=== PATIENT | male | born 1985 | race Hispanic/Latino ===

== ENCOUNTER 2019-12-26 23:03 | Emergency (ER) | payer SELFPAY ==
--- NOTE | 2019-12-26 23:19 | EDPHYS ---
Physician Documentation [facility] Name: Alexx Martin Age: 34 yrs Sex: Male : 1985 Arrival Date: 12/26/2019 Time: 23:07 Bed 17 Private MD: ED Physician rEik Duque HPI: 12/27 02:38 This 34 yrs old Male presents to ER via Ambulatory with complaints of tw4 Abcess/Tooth. 02:38 The patient presents with pain. The problem is located in the right submandibular area. tw4 Onset: The symptoms/episode began/occurred today. Duration: The symptoms are continuous. Modifying factors: The symptoms are alleviated by nothing, the symptoms are aggravated by nothing. Severity of symptoms: At their worst the symptoms were mild, in the emergency department the symptoms are unchanged. The patient has not experienced similar symptoms in the past. Historical: - Allergies: 12/26 23:27 No Known Allergies; wh - Home Meds: 23:27 None [Active]; wh - PMHx: 23:27 None; - PSHx: 23:27 None; wh - Immunization history:: Adult Immunizations up to date. - Coronavirus screen:: The patient has NOT traveled to [place] in the past 14 days. - Social history:: Smoking status: Patient/guardian denies using. - Ebola Screening: : Patient negative for fever greater than or equal to 101.5 degrees Fahrenheit, and additional compatible Ebola Virus Disease symptoms Patient denies exposure to infectious person. ROS: 12/27 02:38 Constitutional: Negative for fever, chills, and weight loss, Eyes: Negative for injury, tw4 pain, redness, and discharge, Cardiovascular: Negative for chest pain, palpitations, and edema, Respiratory: Negative for shortness of breath, cough, wheezing, and pleuritic chest pain, Abdomen/GI: Negative for abdominal pain, nausea, vomiting, diarrhea, and constipation, Back: Negative for injury and pain. ENT: Positive for dental pain, Negative for drainage from ear(s), ear pain, foreign body sensation, Gum pain hearing loss, nasal discharge, rhinorrhea, sinus congestion. Exam: 02:38 Head/face: Noted is swelling, that is moderate, of the right jaw. tw4 02:38 ENT: Dental exam: dental caries, that is moderate, specifically in the upper right third molar (#1), upper right second molar (#2), lower right first molar (#30) and lower right third molar (#32), gum swelling, that is moderate. 02:48 Constitutional: This is a well developed, well nourished patient who is awake, alert, tw4 and in no acute distress. Eyes: Pupils equal round and reactive to light, extra-ocular motions intact. Lids and lashes normal. Conjunctiva and sclera are non-icteric and not injected. Cornea within normal limits. Periorbital areas with no swelling, redness, or edema. Chest/axilla: Normal chest wall appearance and motion. Nontender with no deformity. No lesions are appreciated. Cardiovascular: Regular rate and rhythm with a normal S1 and S2. No gallops, murmurs, or rubs. Normal PMI, no JVD. No pulse deficits. Respiratory: Lungs have equal breath sounds bilaterally, clear to auscultation and percussion. No rales, rhonchi or wheezes noted. No increased work of breathing, no retractions or nasal flaring. Abdomen/GI: Soft, non-tender, with normal bowel sounds. No distension or tympany. No guarding or rebound. No evidence of tenderness throughout. Back: No spinal tenderness. No costovertebral tenderness. Full range of motion. Vital Signs: 12/26 23:30 BP 114 / 69; Pulse 88; Resp 18; Temp 98; Pulse Ox 99% ; Weight 65.77 kg; Height 5 ft. 4 wh in. (162.56 cm); Pain 6/10; 23:30 Body Mass Index 24.89 (65.77 kg, 162.56 cm) wh MDM: 23:16 Patient medically screened. tw4 12/27 02:48 Differential diagnosis: dental caries, dental abscess, aphthous ulcers. Data reviewed: tw4 vital signs, nurses notes. Data interpreted: Pulse oximetry: Interpretation: normal. Counseling: I had a detailed discussion with the patient and/or guardian regarding: the historical points, exam findings, and any diagnostic results supporting the discharge/admit diagnosis. Special discussion: I discussed with the patient/guardian in detail that at this point there is no indication for admission to the hospital. It is understood, however, that if the symptoms persist or worsen the patient needs to return immediately for re-evaluation. Administered Medications: 12/26 23:30 Drug: TORadol 60 mg Route: IM; Site: right gluteus; rr5 12/27 00:18 Follow up: Response: No adverse reaction 12/26 23:32 Drug: Cleocin 600 mg Route: IM; Site: left gluteus; rr5 12/27 00:18 Follow up: Response: No adverse reaction Disposition: 12/26/19 23:19 Discharged to Home. Impression: Dental caries, unspecified. - Condition is Stable. - Discharge Instructions: Dental Caries, Adult, Dental Pain. - Prescriptions for Cleocin 300 mg Oral Capsule - take 1 capsule by ORAL route every 6 hours for 10 days; 40 capsule. Ibuprofen 800 mg Oral Tablet - take 1 tablet by ORAL route every 8 hours As needed take with food; 30 tablet. Tylenol- Codeine #3 300-30 mg Oral Tablet - take 2 tablet by ORAL route every 6 hours As needed; 6 tablet. - Medication Reconciliation Form, Thank You Letter, Antibiotic Education, Prescription Opioid Use form. - Follow up: Private Physician; When: Upon discharge from the Emergency Department; Reason: If symptoms return, Recheck today's complaints, Continuance of care. - Problem is new. - Symptoms have improved. Signatures: Pauline Mosqueda wh Erik Duque MD MD tw4 Momo Montes RN RN rr5 Corrections: (The following items were deleted from the chart) 00:18 12/26 23:19 12/26/2019 23:19 Discharged to Home. Impression: Dental caries, wh unspecified. Condition is Stable. Forms are Medication Reconciliation Form, Thank You Letter, Antibiotic Education, Prescription Opioid Use. Follow up: Private Physician; When: Upon discharge from the Emergency Department; Reason: If symptoms return, Recheck today's complaints, Continuance of care. Problem is new. Symptoms have improved. tw4 12/27 02:48 02:38 Constitutional: This is a well developed, well nourished patient who is awake, tw4 alert, and in no acute distress. Head/Face: Normocephalic, atraumatic. tw4
[2019-12-26] MEDS ORDERED: KETOROLAC 30 MG/ML INJ ONE (23:29)
[2019-12-26] MEDS ORDERED: CLINDAMYCIN IV 150 MG/ML (4 mL) VIAL ONE (23:29)
--- NOTE | 2019-12-27 00:20 | ER ---
Nurse's Notes [facility] Name: Alexx Martin Age: 34 yrs Sex: Male : 1985 Arrival Date: 12/26/2019 Time: 23:07 Bed 17 Private MD: Diagnosis: Dental caries, unspecified Presentation: 12/26 23:10 Presenting complaint: Patient states: C/O dental pain for 2 weeks now, was seen by Dentist yesterday and advised to finish ABX therapy and follow up for procedure. Transition of care: patient was not received from another setting of care. Onset of symptoms was December 26, 2019. Risk Assessment: Do you want to hurt yourself or someone else? Patient reports no desire to harm self or others. Initial Sepsis Screen: Does the patient meet any 2 criteria? No. Patient's initial sepsis screen is negative. Does the patient have a suspected source of infection? Yes: Other: dental abscess. Care prior to arrival: None. 23:10 Method Of Arrival: Ambulatory 23:10 Acuity: ANNELISE 4 Triage Assessment: 23:10 General: Appears in no apparent distress. Behavior is calm, cooperative, appropriate for age. Pain: Complains of pain in dental pain. EENT: Poor dentition noted. Dental caries noted in lower right third molar (#32). Neuro: Level of Consciousness is awake, alert, obeys commands, Oriented to person, place, time, situation, Appropriate for age. Cardiovascular: Capillary refill < 3 seconds. Respiratory: Airway is patent Respiratory effort is even, unlabored, Respiratory pattern is regular, symmetrical. GI: Abdomen is flat, non-distended. : No signs and/or symptoms were reported regarding the genitourinary system. Derm: Skin is intact, is healthy with good turgor, Skin is pink, warm \T\ dry. normal. Musculoskeletal: Circulation, motion, and sensation intact. Historical: - Allergies: 23:27 No Known Allergies; - Home Meds: 23:27 None [Active]; - PMHx: 23:27 None; - PSHx: 23:27 None; - Immunization history:: Adult Immunizations up to date. - Coronavirus screen:: The patient has NOT traveled to [place] in the past 14 days. - Social history:: Smoking status: Patient/guardian denies using. - Ebola Screening: : Patient negative for fever greater than or equal to 101.5 degrees Fahrenheit, and additional compatible Ebola Virus Disease symptoms Patient denies exposure to infectious person. Screenin:24 Abuse screen: Denies threats or abuse. Denies injuries from another. Nutritional screening: No deficits noted. Tuberculosis screening: No symptoms or risk factors identified. Fall Risk None identified. Vital Signs: 23:30 BP 114 / 69; Pulse 88; Resp 18; Temp 98; Pulse Ox 99% ; Weight 65.77 kg; Height 5 ft. 4 wh in. (162.56 cm); Pain 6/10; 23:30 Body Mass Index 24.89 (65.77 kg, 162.56 cm) ED Course: 23:07 Patient arrived in ED. cl3 23:14 Pauline Mosqueda is Primary Nurse. 23:16 Erik Duque MD is Attending Physician. tw4 23:23 Triage completed. 23:26 Arm band placed on right wrist. 23:26 Patient has correct armband on for positive identification. Bed in low position. Call light in reach. Side rails up X 1. Pulse ox on. NIBP on. 23:26 No provider procedures requiring assistance completed. Patient did not have IV access during this emergency room visit. Administered Medications: 23:30 Drug: TORadol 60 mg Route: IM; Site: right gluteus; rr5 12/27 00:18 Follow up: Response: No adverse reaction 12/26 23:32 Drug: Cleocin 600 mg Route: IM; Site: left gluteus; rr5 12/27 00:18 Follow up: Response: No adverse reaction Outcome: 12/26 23:19 Discharge ordered by . tw4 12/27 00:12 Discharged to home ambulatory, with family. Condition: stable Discharge instructions given to patient, family, Instructed on discharge instructions, follow up and referral plans. no drinking with medication, no driving heavy equipment, medication usage, POC Demonstrated understanding of instructions, follow-up care, medications, POC Prescriptions given X 3. 00:18 Patient left the ED. Signatures: Pauline Mosqueda Erik Duque MD MD tw4 Momo Montes, RN RN rr5 Lamar Johnson cl3
== END 2019-12-27 00:18 | disposition home or self-care (01) ==
LOC: EDSEX 23:03 → ER 23:03
DX: K02.9 Dental caries, unspecified (principal)
CPT/HCPCS: 96372; 99283; S0077